=== PATIENT | male | born 1980 | race Hispanic/Latino ===

== ENCOUNTER 2016-10-04 15:06 | Emergency (ER) | payer OTHER ==
[~2016-10-04] VITALS: Ht 172.7 cm; Wt 95.3 kg
[~2016-10-04 15:06] MED LIST: IBUPROFEN800 MG PO; ULTRAM(MONOGRAP50 MG PO
--- NOTE | 2016-10-04 16:51 | ED GENERAL ADULT ---
History of Present Illness General Chief Complaint: General Adult Stated Complaint: RECTAL PAIN Source: patient, family Exam Limitations: no limitations Vital Signs & Intake/Output Vital Signs & Intake/Output Vital Signs Date Time Temp Pulse Resp B/P Pulse O2 O2 Flow FiO2 Ox Delivery Rate 10/04 1822 99.0 91 18 151/84 99 Room Air 10/04 1514 97.0 78 18 148/74 95 Room Air Allergies Coded Allergies: NO KNOWN ALLERGIES (02/06/13) Reconcile Medications Ciprofloxacin HCl (Cipro) 500 MG TABLET 1 TAB PO BID RECTAL INFECTION Ibuprofen 800 MG TAB 1 TAB PO 4 TIMES/DAY PRN PAIN Metronidazole (Flagyl) 500 MG TABLET 1 TAB PO TID RECTAL INFECTION DO NOT DRINK ALCOHOL WHILE ON THIS MEDICATION Oxycodone HCl/Acetaminophen (Percocet 5-325 MG Tablet) 5 MG-325 MG TABLET 1 TAB PO Q6HR PRN PAIN Tramadol HCl (Ultram) 50 MG TAB 1-2 TAB PO 4 TIMES/DAY PRN PAIN Triage Note: C/O SEVERE RECTAL PAIN, WITH SOME BLEEDING X 4 DAYS. PMH:HEMORRHIDS. Triage Nurses Notes Reviewed? yes Onset: Gradual Duration: day(s): (4) Timing: no prior history Injury Environment: home Severity: severe Severity Numbers: 10 Modifying Factors: Improves With: immobilization. HPI: Patient is a 36-year-old male with no known past medical history presenting to the emergency Department chief complaint of worsening rectal pain 4 days. He reports is worse when he tries to sit. Denies any history of hemorrhoids. Denies any bleeding with bowel movements. He reports that is very painful when he trieS to move his bowels so he's been avoiding it. Denies any fevers or chills. Denies taking anything for pain at home. Denies any nausea or vomiting. No recent antibiotic use. No recent travel. No history of similar symptoms. (FORTINO KHALIL) Past History Travel History Traveled to [place] past 21 day No Medical History Any Pertinent Medical History? see below for history Musculoskeletal: chronic back pain Surgical History Surgical History: N Psychosocial History What is your primary language Portuguese Tobacco Use: Never used ETOH Use: denies use Family History Hx Contributory? No (FORTINO KHALIL) Review of Systems Review of Systems Constitutional: Reports: no symptoms. Comments Review of systems: See HPI, All other systems negative. Constitutional, no chills fever or weight loss HEENT: No visual changes no sore throat no congestion Cardiovascular: No chest pain ,palpitation , orthopnea or ankle swelling Skin, no jaundice Respiratory: No dyspnea cough sputum or hemoptysis GI: No nausea no vomiting : No dysuria No hematuria Muscle skeletal: no back pain, no neck pain, Neurologic: No numbness no confusion Psych: No stress anxiety or depression,. Heme/endocrine: No bruising no bleeding no polyuria or polydipsia Immunology: No splenectomy or history of AIDS (FORTINO KHALIL) Physical Exam Physical Exam General Appearance: well developed/nourished, alert, awake, mild distress Comments: Well-developed well-nourished person in no acute distress HEENT: Pupils equally round and reactive to light and accommodation. Nose is atraumatic. Neck: Normal inspection Back: Nontender, no CVA tenderness. Full range of motion Cardiovascular: Regular rate and rhythms no murmurs rubs or gallops, normal JVP Respiratory: Chest nontender. No respiratory distress.breath sounds clear to auscultation bilaterally Abdomen: Soft, nontender nondistended, no appreciable organomegaly. Normal bowel sounds. No ascites Rectal: Very tender to palpation, nothing visualized externally, during rectal examination internal examination reveals firm fluctuant lesion at the 12 o'clock position, able to express pus with gentle palpation. Unable to visualize any lesions though. No visualized hemorrhoids. Extremity: No edema Neuro: Alert oriented x3 Skin: No appreciable rash on exposed skin, skin is warm and dry. Psych: Mood and affect is normal, memory and judgment is normal. Core Measures ACS in differential dx? No CVA/TIA Diagnosis: No Severe Sepsis Present: No Septic Shock Present: No (FORTINO KHALIL) Progress Differential Diagnoses I considered the following diagnoses in my evaluation of the patient: Perirectal abscess, internal hemorrhoid, sepsis Plan of Care: Orders Procedure Date/time Status BLOOD CULTURE 10/04 164 Active LACTIC ACID 10/04 164 Complete COMPREHENSIVE METABOLIC PANEL 10/04 164 Complete CBC WITHOUT DIFFERENTIAL 10/04 164 Complete Laboratory Tests 10/04/16 1700: Anion Gap 10, Estimated GFR > 60, BUN/Creatinine Ratio 14.3, Glucose 105 H, Lactic Acid 1.5, Calcium 9.2, Total Bilirubin 0.6, AST 31, ALT 60, Alkaline Phosphatase 81, Total Protein 7.1, Albumin 4.4, Globulin 2.7, Albumin/Globulin Ratio 1.6, CBC w Diff NO MAN DIFF REQ, RBC 5.10, MCV 89.1, MCH 29.5, RDW 13.7, MPV 9.9, Gran % 77.9 H, Lymphocytes % 14.4 L, Monocytes % 6.9, Eosinophils % 0.4, Basophils % 0.4, Absolute Granulocytes 9.4 H, Absolute Lymphocytes 1.7, Absolute Monocytes 0.8 H, Absolute Eosinophils 0, Absolute Basophils 0, PUBS MCHC 33.1 Microbiology 10/04 1720 BLOOD: Blood Culture - RECD 10/04 170 BLOOD: Blood Culture - RECD Diagnostic Imaging: Viewed by Me: CT Scan. Discussed w/RAD: CT Scan. Radiology Impression: PATIENT: ADDISON MARIE PRESENT AGE: 36 PATIENT ACCOUNT NO: [id number] : 79 LOCATION: [facility] ORDERING PHYSICIAN: FORTINO LANZA SERVICE DATE: 10/04/16 EXAM TYPE: CAT - CT PELVIS W IV CONTRAST EXAMINATION: CT PELVIS WITH IV CONTRAST CLINICAL INFORMATION: 36-year-old male patient with "purulent drainage" and pain COMPARISON: None TECHNIQUE: Helical scanning was performed with submillimeter collimation through the pelvis with 94 mL of Optiray 320 intravenous contrast. Sagittal and coronal multiplanar 2-D reconstructions were obtained. DLP: 303 mGy -cm FINDINGS: PELVIS: There is no pelvic mass. There is subtle asymmetric thickening and enhancement of the left lateral wall of the rectum. Conceivably this could be a site of infection. No drainable abscess is seen. The ischial rectal fat is well-maintained. The prostate gland is normal. Seminal vesicles are normal. The urinary bladder is unremarkable. Patient has bilateral fat- containing inguinal hernias. The visualized colon and small intestine are normal. The appendix is normal. OSSEOUS STRUCTURES: Unremarkable. IMPRESSION: 1. No drainable perirectal abscess. 2. Subtle wall thickening of the left lateral rectum. There is some enhancement in this area, which would be consistent with hyperemia and infection. 3. Small bilateral fat-containing inguinal hernias. DICTATED BY: DANIEL FLORES MD Initial ED EKG: none Comments: 10/04/2016 6:07:54 PM on arrival patient medicated with IV fluids, IV morphine, he will go for CT to rule out perirectal abscess. (WILNER LANZA,FORTINO) Departure Departure Time of Disposition: 1813 Disposition: HOME OR SELF CARE Condition: Stable Clinical Impression Primary Impression: Perirectal cellulitis Referrals: PEDRO PABLO ALEJANDRO JR, DO PATIENT HAS NO PRIMARY CARE DR (PCP/Family) Additional Instructions: Follow-up with Dr. gutierrez a call to make an appointment. Take Cipro and Flagyl as prescribed to help with infection. Warm baths. Take Percocet as prescribed for pain. Return for worsening symptoms or concerns. PATIENT: ADDISON MARIE PRESENT AGE: 36 PATIENT ACCOUNT NO: [id number] : 79 LOCATION: [facility] ORDERING PHYSICIAN: FORTINO LANZA SERVICE DATE: 10/04/16 EXAM TYPE: CAT - CT PELVIS W IV CONTRAST EXAMINATION: CT PELVIS WITH IV CONTRAST CLINICAL INFORMATION: 36-year-old male patient with "purulent drainage" and pain COMPARISON: None TECHNIQUE: Helical scanning was performed with submillimeter collimation through the pelvis with 94 mL of Optiray 320 intravenous contrast. Sagittal and coronal multiplanar 2-D reconstructions were obtained. DLP: 303 mGy-cm FINDINGS: PELVIS: There is no pelvic mass. There is subtle asymmetric thickening and enhancement of the left lateral wall of the rectum. Conceivably this could be a site of infection. No drainable abscess is seen. The ischial rectal fat is well-maintained. The prostate gland is normal. Seminal vesicles are normal. The urinary bladder is unremarkable. Patient has bilateral fat-containing inguinal hernias. The visualized colon and small intestine are normal. The appendix is normal. OSSEOUS STRUCTURES: Unremarkable. IMPRESSION: 1. No drainable perirectal abscess. 2. Subtle wall thickening of the left lateral rectum. There is some enhancement in this area, which would be consistent with hyperemia and infection. 3. Small bilateral fat-containing inguinal hernias. DICTATED BY: DANIEL FLORES MD DATE/TIME DICTATED:10/04/161753 BAND CUTTER:ALEXY DATE/TIME TRANSCRIBED:10/04/161753 CONFIDENTIAL, DO NOT COPY WITHOUT APPROPRIATE AUTHORIZATION. <Electronically signed in Other Vendor System> SIGNED BY: DANIEL FLORES MD [id number] Departure Forms: Customer Survey General Discharge Information Prescriptions: Current Visit Scripts Ciprofloxacin HCl (Cipro) 1 TAB PO BID #20 TAB Metronidazole (Flagyl) 1 TAB PO TID #30 TAB DO NOT DRINK ALCOHOL WHILE ON THIS MEDICATION Oxycodone HCl/Acetaminophen (Percocet 5-325 MG Tablet) 1 TAB PO Q6HR PRN PAIN #15 TAB (FORTINO KHALIL) PA/CLERICAL GRADER Co-Sign Statement Statement: ED Attending supervision documentation- [] I saw and evaluated the patient. I have also reviewed all the pertinent lab results and diagnostic results. I agree with the findings and the plan of care as documented in the PA's/CLERICAL GRADER's documentation. [X] I have reviewed the ED Record and agree with the PA's/CLERICAL GRADER's documentation. [] Additions or exceptions (if any) to the PAs/CLERICAL GRADER's note and plan are summarized below: [] (MONICA LEMUS,BRENDA) Critical Care Note Critical Care Note Critical Care Time: non-applicable (FORTINO KHALIL)
[2016-10-04 17:11] LABS: ABSOLUTE BASOPHIL COUNT 0 /CUMM (0.0-0.2); ABSOLUTE EOSINOPHIL COUNT 0 /CUMM (0.0-0.7); ABSOLUTE GRANULOCYTE CT 9.4 /CUMM (1.4-6.5); ABSOLUTE LYMPH COUNT 1.7 /CUMM (1.2-3.4); ABSOLUTE MONOCYTE COUNT 0.8 /CUMM (0.10-0.60); BASOPHIL % 0.4 % (0.0-2.0); EOSINOPHIL % 0.4 % (0-5); GRANULOCYTE % 77.9 % (42.2-75.2); HEMATOCRIT 45.4 % (42-52); MEAN CORPUSCULAR HGB 29.5 PG (27.0-31.0); MEAN CORPUSCULAR HGB CONC 33.1 G/DL (33.0-37.0); MEAN CORPUSCULAR VOLUME 89.1 FL (80.0-94.0); MEAN PLATELET VOLUME 9.9 FL (7.4-10.4); PLATELET COUNT 223 /CUMM (130-400); RBC DISTRIBUTION WIDTH 13.7 % (11.5-14.5)
--- NOTE | 2016-10-04 18:09 | CT SCAN REPORT ---
EXAMINATION: CT PELVIS WITH IV CONTRAST CLINICAL INFORMATION: 36-year-old male patient with "purulent drainage" and pain COMPARISON: None TECHNIQUE: Helical scanning was performed with submillimeter collimation through the pelvis with 94 mL of Optiray 320 intravenous contrast. Sagittal and coronal multiplanar 2-D reconstructions were obtained. DLP: 303 mGy-cm FINDINGS: PELVIS: There is no pelvic mass. There is subtle asymmetric thickening and enhancement of the left lateral wall of the rectum. Conceivably this could be a site of infection. No drainable abscess is seen. The ischial rectal fat is well-maintained. The prostate gland is normal. Seminal vesicles are normal. The urinary bladder is unremarkable. Patient has bilateral fat-containing inguinal hernias. The visualized colon and small intestine are normal. The appendix is normal. OSSEOUS STRUCTURES: Unremarkable. IMPRESSION: 1. No drainable perirectal abscess. 2. Subtle wall thickening of the left lateral rectum. There is some enhancement in this area, which would be consistent with hyperemia and infection. 3. Small bilateral fat-containing inguinal hernias.
[2016-10-04 18:22] VITALS: BP 151/84
[2016-10-04] MEDS ORDERED: FLAGYL500 MG PO (18:23)
[2016-10-04] MEDS ORDERED: PERCOCET 5-3251 EACH PO (18:23)
[2016-10-04] MEDS ORDERED: CIPRO500 M1 PO (18:23)
== END 2016-10-04 18:41 ==
LOC: ERH 15:06
PROVIDERS: Physician Assistant
DX: K61.1 Rectal abscess (principal)
CPT/HCPCS: 87040; 96361; 96374; 96375; J2405

== ENCOUNTER → 2017-02-21 | Day surgery (SDC) | payer SELFPAY ==
[~2017-02-21] VITALS: Ht 172.7 cm; Wt 97.5 kg
[~2017-02-21] MED LIST changes: +CIPRO500 M1 PO; +FLAGYL500 MG PO; +PERCOCET 5-3251 EACH PO
--- NOTE | 2017-02-21 13:24 | Operative Report ---
Operative/Inv Procedure Report Surgery Date: 02/21/17 Name of Procedure: Anal fistulotomy Pre-Operative Diagnosis: Anal fistula Post-Operative Diagnosis: Anal fistula Estimated Blood Loss: scant Surgeon/Bead Picker: ALEIDA KRISHNAMURTHY MD Anesthesia: local monitored anesthesi Specimens: Anal fistula to pathology for permanent section Complications: None Condition: Good in recovery room Operative Indication: Open and draining anal fistula Operative/Procedure Note Note: After informed consent was obtained, the patient was placed in the prone jackknife position on the operating room table. After successful induction of deep IV sedation, the patient's buttocks were taped apart and the perianal area was prepped in the usual fashion. At this time approximately 10 mL of 1/2% Marcaine with 1-200,000 epinephrine was injected subcutaneously around the perianal area. An additional 10 mL of the same solution was then injected deeply into the surrounding sphincter mechanisms Ms. jesse for good sphincter relaxation. With good local anesthesia and placed the anus and perianal area were examined using a small Hill-Kong retractor. Findings revealed a primary fistulous opening in the left anterior anal canal which communicated with a subcutaneous tract to a sinus opening in the left anterior perianal skin approximately 1/2 inch outside the anal verge. With the probe and the tract. Skin and subcutaneous tissue were divided to expose the entire length of the tract. The granulation tissue within the tract as well as the inciting crypt were destroyed using electrocautery. Overhanging lateral skin edges were excised and sent to pathology labeled anal fistula. Hemostasis was obtained with electrocautery. Upon completion of the procedure hemostasis was intact and the anal orifice was patent. Fresh bacitracin dressing was applied and the patient was taken to recovery in satisfactory condition. Findings: See above procedure note Discharge Disposition: Same Day Admissions
== END ==
LOC: STS 02-14 07:00
DX: K60.3 Anal fistula (principal); K62.89 Other specified diseases of anus and rectum
CPT/HCPCS: J0131; J1885; J2250